=== PATIENT | female | born 1965 | race Caucasian/White ===

== ENCOUNTER 2023-07-15 08:05 | Emergency (ER) | payer OTHER, SELFPAY ==
[2023-07-15 08:19] VITALS: BP 194/86; PULSE 75; RESP 16; TEMP 36.8; O2SAT 99
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
[2023-07-15] MEDS: SILVER SULFADIAZINE 1% CR 50 GM JAR (*BKC) 1 APPLIC TOPICAL (08:45)
[2023-07-15] MEDS: TETANUS,DIPHTHERIA,AC PERTUSSIS ADULT (0.5 ML) BOOSTRIX IM (09:02)
== END 2023-07-15 09:08 | disposition home or self-care (01) ==
PROVIDERS: Emergency Provider Registered Nurse
DX: T22.212A Burn of second degree of left forearm, initial encounter (principal); X10.2XXA Contact with fats and cooking oils, initial encounter; Y93.G3 Activity, cooking and baking; Z23 Encounter for immunization; E78.00 Pure hypercholesterolemia, unspecified
CPT/HCPCS: 16020; 90471; 90715; 99213; A9270; G0463